=== PATIENT | male | born 1990 | race African-American/Black ===

== ENCOUNTER 2017-05-09 19:15 | Emergency (ER) | payer OTHER ==
[2017-05-09] MEDS ORDERED: OXYCODONE-ACETAMINOPHEN 5-325 MG TABLET PO ONE (22:27)
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
[2017-05-10] MEDS ORDERED: ONDANSETRON ODT 4 MG TAB (6 TAB/DSPK) PO PRN (04:39)
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
[2017-05-10 04:47] VITALS: BP 126/72
== END 2017-05-10 05:27 | disposition home or self-care (01) ==
LOC: ER 19:15
DX: S20.219A Contusion of unspecified front wall of thorax, initial encounter (principal); V47.5XXA Car driver injured in collision with fixed or stationary object in traffic accident, initial encounter; W22.11XA Striking against or struck by driver side automobile airbag, initial encounter
CPT/HCPCS: 99284

== ENCOUNTER 2017-12-03 19:11 | Emergency (ER) | payer SELFPAY ==
[2017-12-03 20:22] LABS: ABSOLUTE EOSINOPHILS # (AUTO) 0.1 10^3/uL (0.0-0.6); ABSOLUTE LYMPHOCYTES (AUTO) 1.5 10^3/uL (0.5-4.7); ABSOLUTE MONOCYTES (AUTO) 0.8 10^3/uL (0.1-1.4); ABSOLUTE NEUT (AUTO) 7.1 10^3/uL (1.7-8.2); BASOPHILS % (AUTO) 0.4 % (0-2); EOSINOPHILS % (AUTO) 0.8 % (0-6); HEMATOCRIT 43.8 % (37.9-51.0); HEMOGLOBIN 14.6 g/dL (13.5-17.0); LYMPHOCYTES % (AUTO) 16.1 % (13-45); MEAN CORPUSCULAR HEMOGLOBIN 28.9 pg (27.0-33.4); MEAN CORPUSCULAR HGB CONC 33.3 g/dL (32.0-36.0); MEAN CORPUSCULAR VOLUME 87 fl (80-97); MONOCYTES % (AUTO) 8.3 % (3-13); PLATELET COUNT 234 10^3/uL (150-450); RED BLOOD COUNT 5.04 10^6/uL (4.35-5.55); RED CELL DISTRIBUTION WIDTH 13.7 % (11.5-14.0); SEGMENTED NEUTROPHILS % (AUTO) 74.4 % (42-78); TOTAL CELLS COUNTED % (AUTO) 100 %; WHITE BLOOD COUNT 9.5 10^3/uL (4.0-10.5)
[2017-12-03 20:35] LABS: ALANINE AMINOTRANSFERASE 26 U/L (21-72); ALBUMIN 4.4 g/dL (3.5-5.0); ALKALINE PHOSPHATASE 116 U/L (38-126); ANION GAP 13 (5-19); ASPARTATE AMINO TRANSFERASE 23 U/L (17-59); BILIRUBIN,DIRECT 0.4 mg/dL (0.0-0.4); BILIRUBIN,TOTAL 1.6 mg/dL (0.2-1.3); BLOOD UREA NITROGEN 18 mg/dL (7-20); CALCIUM 9.9 mg/dL (8.4-10.2); CARBON DIOXIDE 29 mmol/L (22-30); CHLORIDE 106 mmol/L (98-107); GLUCOSE 118 mg/dL (75-110); POTASSIUM 4.1 mmol/L (3.6-5.0); SODIUM 147.5 mmol/L (137-145); TOTAL PROTEIN 7.2 g/dL (6.3-8.2)
[2017-12-03 20:36] LABS: ACETAMINOPHEN < 10 ug/mL (10-30); ALCOHOL < 10 mg/dL (NONE DETECTED); SALICYLATE < 1.0 mg/dL (2.0-20.0)
[2017-12-03 21:03] LABS: APPEARANCE,URINE CLEAR; BILIRUBIN,URINE NEGATIVE (NEGATIVE); COLOR,URINE YELLOW; GLUCOSE, URINE NEGATIVE (NEGATIVE); KETONES,URINE NEGATIVE (NEGATIVE); LEUKOCYTE ESTERASE,URINE NEGATIVE (NEGATIVE); NITRITE,URINE NEGATIVE (NEGATIVE); PROTEIN,URINE 100 mg/dL (NEGATIVE); URINE SPECIFIC GRAVITY 1.026; UROBILINOGEN,URINE NEGATIVE mg/dL (<2.0)
[2017-12-03 21:20] LABS: URINE AMPHETAMINES SCREEN NEGATIVE; URINE BARBITURATES SCREEN NEGATIVE; URINE BENZODIAZEPINES SCREEN NEGATIVE; URINE COCAINE SCREEN NEGATIVE; URINE MARIJUANA (THC) SCREEN UNCONFIRMED POSITIVE; URINE METHADONE SCREEN NEGATIVE; URINE PHENCYCLIDINE SCREEN NEGATIVE
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
--- NOTE | 2017-12-04 10:30 | EKG REPORT ---
SEVERITY:- ABNORMAL ECG - SINUS RHYTHM CONSIDER LEFT VENTRICULAR HYPERTROPHY : Confirmed by: Kayy Vasquez 04-Dec-2017 10:29:57
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
[2017-12-04 17:51] VITALS: BP 128/50
== END 2017-12-04 17:51 | disposition home or self-care (01) ==
LOC: ER 19:11
DX: S11.91XA Laceration without foreign body of unspecified part of neck, initial encounter (principal); R45.851 Suicidal ideations; X78.1XXA Intentional self-harm by knife, initial encounter
CPT/HCPCS: 36415; 80053; 80307; 81001; 85025; 93005; 93010; 99285